=== PATIENT | female | born 1965 | race Asian ===

== ENCOUNTER 2020-07-22 09:28 | Inpatient (IN) | payer OTHER ==
[~2020-07-22] VITALS: Ht 167.6 cm; Wt 71.8 kg
[2020-07-22 10:03] LABS: EOSINOPHILS % (AUTO) 2.5 % (1.0-6.0); HEMATOCRIT 46.2 % (36-46); HEMOGLOBIN 14.9 g/dL (12.0-16.0); LYMPHOCYTES # (AUTO) 2.6 K/uL (1.0-4.8); MEAN CORPUSCULAR HEMOGLOBIN 28.3 pg (26.0-34.0); MEAN CORPUSCULAR HGB CONC 32.3 G/dL (31.0-37.0); MEAN CORPUSCULAR VOLUME 88 fL (80-100); MONOCYTES # (AUTO) 0.6 K/uL (0.1-1.0); MONOCYTES % (AUTO) 7.8 % (2.0-9.0); NEUTROPHILS # (AUTO) 4.6 K/uL (1.8-7.7); NEUTROPHILS % (AUTO) 56.7 % (40.0-70.0); PLATELET COUNT (AUTO) 200 K/uL (150-450); RED BLOOD CELL COUNT(AUTO) 5.27 MIL/uL (4.00-5.20)
[2020-07-22] MEDS: NiCARDipine HCL 25 MG in SODIUM CHLORIDE 0.9% 240 ML IV PRN ×3 (10:09→20:36)
[2020-07-22 10:12] LABS: PROTHROMBIN TIME 10.6 SEC (9.4-11.6)
[2020-07-22 10:15] LABS: COVID AG,FIA SOURCE NASOPHARYNGEAL
[2020-07-22 10:22] LABS: ANION GAP 8 mmol/L (8-16); CALCIUM, TOTAL 8.5 mg/dL (8.8-10.5); CARBON DIOXIDE 30 mmol/L (22-29); CHLORIDE 105 mmol/L (98-107); CREATININE 0.87 mg/dL (0.60-1.30); GLOMERULAR FILTR. RATE CALC > 60 mL/min (>60); GLUCOSE,RANDOM 157 mg/dL (70-110); POTASSIUM 3.8 mmol/L (3.5-5.1); SODIUM SERUM 143 mmol/L (136-145); UREA NITROGEN, BLOOD 12 mg/dL (7-18)
[2020-07-22 10:23] LABS: ALANINE AMINOTRANSFERASE 31 U/L (12-78); ALBUMIN 3.7 g/dL (3.4-5.0); ALKALINE PHOSPHATASE 108 U/L (46-116); ASPARTATE AMINOTRANSFERASE 30 U/L (15-37); BILIRUBIN,TOTAL 0.6 mg/dL (0.1-1.0); TOTAL PROTEIN, SERUM 7.6 g/dL (6.4-8.2)
[2020-07-22] MEDS ORDERED: ONDANSETRON HCL 4 MG/2 ML VIAL IVP PRN ×2 (10:45→12:30)
[2020-07-22] MEDS ORDERED: ACETAMINOPHEN 325 MG TABLET PO PRN (10:45)
[2020-07-22] MEDS ORDERED: BISACODYL 10 MG RECTAL RECTAL SUPPOSITORY PR PRN (12:30)
[2020-07-22] MEDS ORDERED: IPRATROPIUM BROMIDE 0.5 MG/2.5 ML NEB SOLUTION NEB PRN (12:30)
[2020-07-22] MEDS ORDERED: 0.9% SODIUM CHLORIDE 10 ML SYRINGE IVP PRN (12:30)
[2020-07-22] MEDS ORDERED: ALBUTEROL SULFATE 2.5 MG/0.5 ML NEB SOLUTION NEB PRN (12:30)
[2020-07-22] MEDS ORDERED: SODIUM CHLORIDE 0.9% 250 ML IV ONE (12:45)
[2020-07-22] MEDS: CefTRIAXone 1 GM/DEXTROSE 50 ML IV SCH (12:56)
[2020-07-22] MEDS: PANTOPRAZOLE SODIUM 40 MG/VIAL IVP SCH (12:56)
[2020-07-22] MEDS ORDERED: SODIUM CHLORIDE 0.9% 100 ML ONE (13:25)
[2020-07-22] MEDS ORDERED: IOHEXOL 350 MG/ML 100 ML VIAL ONE (13:25)
[2020-07-22] MEDS: DOXYCYCLINE HYCLATE 100 MG in DEXTROSE 5%-WATER 100 ML IV SCH (14:24)
[2020-07-22 16:46] LABS: B-TYPE NATRIURETIC PEPTIDE 150 pg/mL (0-100)
[2020-07-22 17:05] VITALS: BP 159/103
[2020-07-22] MEDS: ACETAMINOPHEN 325 MG TABLET PO PRN ×2 (17:50→21:51)
[2020-07-22 20:00] VITALS: BP 176/89
[2020-07-23] VITALS: BP 150/88
[2020-07-23] MEDS: LORazepam 2 MG/ML VIAL IVP PRN ×3 (00:26→21:30)
[2020-07-23] MEDS ORDERED: SODIUM CHLORIDE 0.9% 250 ML IV ONE (01:35)
[2020-07-23] MEDS: NiCARDipine HCL 25 MG in SODIUM CHLORIDE 0.9% 240 ML IV PRN ×5 (01:56→23:39)
[2020-07-23] MEDS: DOXYCYCLINE HYCLATE 100 MG in DEXTROSE 5%-WATER 100 ML IV SCH ×2 (02:42→14:38)
[2020-07-23 04:00] VITALS: BP 176/110
[2020-07-23] MEDS: ACETAMINOPHEN 325 MG TABLET PO PRN ×3 (04:18→21:09)
[2020-07-23 05:43] LABS: BASOPHILS % (AUTO) 0.4 % (0.0-2.0); EOSINOPHILS % (AUTO) 0.1 % (1.0-6.0); HEMATOCRIT 51.2 % (36-46); HEMOGLOBIN 16.6 g/dL (12.0-16.0); LYMPHOCYTES # (AUTO) 1.8 K/uL (1.0-4.8); MEAN CORPUSCULAR HEMOGLOBIN 28.2 pg (26.0-34.0); MEAN CORPUSCULAR HGB CONC 32.4 G/dL (31.0-37.0); MEAN CORPUSCULAR VOLUME 87 fL (80-100); NEUTROPHILS # (AUTO) 9.2 K/uL (1.8-7.7); NEUTROPHILS % (AUTO) 76.5 % (40.0-70.0); PLATELET COUNT (AUTO) 246 K/uL (150-450); RED CELL DISTRIBUTION WIDTH 14.2 % (11.5-14.5)
[2020-07-23 06:13] LABS: ALANINE AMINOTRANSFERASE 31 U/L (12-78); ALBUMIN 4.1 g/dL (3.4-5.0); ALKALINE PHOSPHATASE 93 U/L (46-116); ANION GAP 11 mmol/L (8-16); ASPARTATE AMINOTRANSFERASE 25 U/L (15-37); BILIRUBIN,TOTAL 1.2 mg/dL (0.1-1.0); CALCIUM, TOTAL 8.9 mg/dL (8.8-10.5); CARBON DIOXIDE 29 mmol/L (22-29); CHLORIDE 101 mmol/L (98-107); CHOL/HDL RATIO 2.2 (3.9-5.7); CHOLESTEROL 157 mg/dL (131-200); CREATININE 0.77 mg/dL (0.60-1.30); GLOMERULAR FILTR. RATE CALC > 60 mL/min (>60); GLUCOSE,RANDOM 136 mg/dL (70-110); HDL CHOLESTEROL 70 mg/dL (40-60); LDL CHOL (CALC.) 74 mg/dL (0-130); POTASSIUM 3.1 mmol/L (3.5-5.1); SODIUM SERUM 141 mmol/L (136-145); THYROID STIMULATING HORMONE 0.68 uIU/mL (0.36-3.74); TOTAL PROTEIN, SERUM 8.5 g/dL (6.4-8.2); TRIGLYCERIDES 63 mg/dL (15-150); UREA NITROGEN, BLOOD 12 mg/dL (7-18)
[2020-07-23 08:00] VITALS: BP 138/89
[2020-07-23] MEDS: MetroNIDAZOLE 500 MG/NACL 100 ML IV SCH ×3 (08:54→23:39)
[2020-07-23] MEDS ORDERED: SODIUM CHLORIDE 0.9% 100 ML ONE (09:20)
[2020-07-23] MEDS ORDERED: IOHEXOL 350 MG/ML 100 ML VIAL ONE (09:20)
[2020-07-23] MEDS: PANTOPRAZOLE SODIUM 40 MG/VIAL IVP SCH (10:50)
[2020-07-23 12:00] VITALS: BP 147/82
[2020-07-23] MEDS: SODIUM CHLORIDE 0.9% 1,000 ML IV SCH (12:39)
[2020-07-23] MEDS: CefTRIAXone 1 GM/DEXTROSE 50 ML IV SCH (12:40)
[2020-07-23] MEDS: POTASSIUM CHL 10 MEQ/WATER 50 ML IV PRN ×3 (12:41→16:32)
[2020-07-23] MEDS ORDERED: DEXTROSE 50%-WATER 25 GM/50 ML SYRINGE IVP PRN (12:45)
[2020-07-23 16:00] VITALS: BP 149/89
[2020-07-23 17:20] LABS: GLUCOSE,POINT OF CARE 134 MG/DL (70-110)
[2020-07-23] MEDS: HEPARIN SODIUM,PORCINE 5,000 UNITS/ML VIAL SQ SCH ×2 (17:42→23:38)
[2020-07-23 18:27] LABS: ALANINE AMINOTRANSFERASE 14 U/L (12-78); ALBUMIN 4.3 g/dL (3.4-5.0); ALKALINE PHOSPHATASE 94 U/L (46-116); ANION GAP 10 mmol/L (8-16); ASPARTATE AMINOTRANSFERASE 29 U/L (15-37); CALCIUM, TOTAL 9.1 mg/dL (8.8-10.5); CARBON DIOXIDE 29 mmol/L (22-29); CHLORIDE 103 mmol/L (98-107); CREATININE 0.91 mg/dL (0.60-1.30); GLOMERULAR FILTR. RATE CALC > 60 mL/min (>60); GLUCOSE,RANDOM 134 mg/dL (70-110); SODIUM SERUM 142 mmol/L (136-145); UREA NITROGEN, BLOOD 13 mg/dL (7-18)
[2020-07-23 18:35] LABS: GLUCOSE,POINT OF CARE 137 MG/DL (70-110)
[2020-07-23 20:00] VITALS: BP 162/92
[2020-07-23] MEDS: INSULIN LISPRO 100 UNITS/ML SQ PRN (23:57)
[2020-07-24] VITALS (8 sets, daily range): BP systolic 145–166; BP diastolic 82–100
[2020-07-24] LABS: GLUCOSE,POINT OF CARE 116 MG/DL (70-110)
[2020-07-24] MEDS: DOXYCYCLINE HYCLATE 100 MG in DEXTROSE 5%-WATER 100 ML IV SCH ×2 (02:12→14:15)
[2020-07-24] MEDS: ACETAMINOPHEN 325 MG TABLET PO PRN ×5 (02:12→20:30)
[2020-07-24] MEDS: SODIUM CHLORIDE 0.9% 1,000 ML IV SCH ×2 (02:12→17:44)
[2020-07-24] MEDS: NiCARDipine HCL 25 MG in SODIUM CHLORIDE 0.9% 240 ML IV PRN ×5 (04:46→21:33)
[2020-07-24 05:08] LABS: GLUCOSE,POINT OF CARE 141 MG/DL (70-110)
[2020-07-24 05:32] LABS: BASOPHILS % (AUTO) 0.3 % (0.0-2.0); EOSINOPHILS % (AUTO) 0.1 % (1.0-6.0); HEMATOCRIT 52.1 % (36-46); HEMOGLOBIN 16.8 g/dL (12.0-16.0); LYMPHOCYTES # (AUTO) 1.5 K/uL (1.0-4.8); LYMPHOCYTES % (AUTO) 14.1 % (22.0-44.0); MEAN CORPUSCULAR HEMOGLOBIN 28.2 pg (26.0-34.0); MEAN CORPUSCULAR HGB CONC 32.3 G/dL (31.0-37.0); MEAN CORPUSCULAR VOLUME 87 fL (80-100); MONOCYTES # (AUTO) 0.7 K/uL (0.1-1.0); MONOCYTES % (AUTO) 6.5 % (2.0-9.0); NEUTROPHILS # (AUTO) 8.3 K/uL (1.8-7.7); PLATELET COUNT (AUTO) 235 K/uL (150-450); RED BLOOD CELL COUNT(AUTO) 5.98 MIL/uL (4.00-5.20)
[2020-07-24 05:48] LABS: ALANINE AMINOTRANSFERASE 28 U/L (12-78); ALBUMIN 3.7 g/dL (3.4-5.0); ALKALINE PHOSPHATASE 77 U/L (46-116); ANION GAP 9 mmol/L (8-16); ASPARTATE AMINOTRANSFERASE 28 U/L (15-37); BILIRUBIN,TOTAL 0.8 mg/dL (0.1-1.0); CALCIUM, TOTAL 8.1 mg/dL (8.8-10.5); CARBON DIOXIDE 28 mmol/L (22-29); CHLORIDE 105 mmol/L (98-107); CREATININE 0.84 mg/dL (0.60-1.30); GLOMERULAR FILTR. RATE CALC > 60 mL/min (>60); GLUCOSE,RANDOM 141 mg/dL (70-110); POTASSIUM 3.4 mmol/L (3.5-5.1); SODIUM SERUM 142 mmol/L (136-145); TOTAL PROTEIN, SERUM 7.9 g/dL (6.4-8.2); UREA NITROGEN, BLOOD 15 mg/dL (7-18)
[2020-07-24 06:07] LABS: GLUCOSE,POINT OF CARE 129 MG/DL (70-110)
[2020-07-24] MEDS: HEPARIN SODIUM,PORCINE 5,000 UNITS/ML VIAL SQ SCH ×3 (08:00→16:00)
[2020-07-24] MEDS: MetroNIDAZOLE 500 MG/NACL 100 ML IV SCH ×2 (08:48→16:31)
[2020-07-24] MEDS: PANTOPRAZOLE SODIUM 40 MG/VIAL IVP SCH (08:48)
[2020-07-24] MEDS: POTASSIUM CHL 10 MEQ/WATER 50 ML IV PRN ×3 (11:34→14:38)
[2020-07-24] MEDS: CefTRIAXone 1 GM/DEXTROSE 50 ML IV SCH (13:24)
[2020-07-24] MEDS: INSULIN LISPRO 100 UNITS/ML SQ PRN (13:59)
[2020-07-24 17:15] LABS: GLUCOSE,POINT OF CARE 146 MG/DL (70-110)
[2020-07-24 20:21] LABS: GLUCOSE,POINT OF CARE 134 MG/DL (70-110)
[2020-07-24 22:39] LABS: GLUCOSE,POINT OF CARE 134 MG/DL (70-110)
[2020-07-25] VITALS: BP 149/96
[2020-07-25] MEDS: MetroNIDAZOLE 500 MG/NACL 100 ML IV SCH ×2 (00:06→07:54)
[2020-07-25] MEDS: NiCARDipine HCL 25 MG in SODIUM CHLORIDE 0.9% 240 ML IV PRN ×3 (00:07→05:39)
[2020-07-25] MEDS: LABETALOL HCL 5 MG/ML 20 ML VIAL IVP PRN ×2 (01:40→08:33)
[2020-07-25] MEDS: DOXYCYCLINE HYCLATE 100 MG in DEXTROSE 5%-WATER 100 ML IV SCH (02:04)
[2020-07-25] MEDS ORDERED: SODIUM CHLORIDE 0.9% 250 ML IV ONE (03:35)
[2020-07-25 04:15] VITALS: BP 144/71
[2020-07-25 05:29] LABS: BASOPHILS % (AUTO) 0.9 % (0.0-2.0); EOSINOPHILS % (AUTO) 0.4 % (1.0-6.0); HEMATOCRIT 49.8 % (36-46); HEMOGLOBIN 15.7 g/dL (12.0-16.0); LYMPHOCYTES # (AUTO) 2.3 K/uL (1.0-4.8); LYMPHOCYTES % (AUTO) 20.9 % (22.0-44.0); MEAN CORPUSCULAR HEMOGLOBIN 27.8 pg (26.0-34.0); MEAN CORPUSCULAR HGB CONC 31.5 G/dL (31.0-37.0); MEAN CORPUSCULAR VOLUME 88 fL (80-100); MONOCYTES % (AUTO) 8.8 % (2.0-9.0); NEUTROPHILS # (AUTO) 7.6 K/uL (1.8-7.7); PLATELET COUNT (AUTO) 221 K/uL (150-450); RED BLOOD CELL COUNT(AUTO) 5.65 MIL/uL (4.00-5.20); RED CELL DISTRIBUTION WIDTH 14.3 % (11.5-14.5)
[2020-07-25 05:30] VITALS: BP 153/90
[2020-07-25] MEDS: ACETAMINOPHEN 325 MG TABLET PO PRN ×2 (05:30→09:29)
[2020-07-25 05:46] LABS: ALANINE AMINOTRANSFERASE 26 U/L (12-78); ALBUMIN 3.5 g/dL (3.4-5.0); ALKALINE PHOSPHATASE 65 U/L (46-116); ANION GAP 8 mmol/L (8-16); ASPARTATE AMINOTRANSFERASE 24 U/L (15-37); BILIRUBIN,TOTAL 0.9 mg/dL (0.1-1.0); CALCIUM, TOTAL 8.1 mg/dL (8.8-10.5); CARBON DIOXIDE 28 mmol/L (22-29); CHLORIDE 108 mmol/L (98-107); CREATININE 0.83 mg/dL (0.60-1.30); GLOMERULAR FILTR. RATE CALC > 60 mL/min (>60); GLUCOSE,RANDOM 125 mg/dL (70-110); POTASSIUM 3.4 mmol/L (3.5-5.1); SODIUM SERUM 144 mmol/L (136-145); TOTAL PROTEIN, SERUM 7.3 g/dL (6.4-8.2); UREA NITROGEN, BLOOD 17 mg/dL (7-18)
[2020-07-25 06:30] VITALS: BP 142/89
[2020-07-25 07:09] LABS: GLUCOSE,POINT OF CARE 125 MG/DL (70-110)
[2020-07-25] MEDS: PANTOPRAZOLE SODIUM 40 MG/VIAL IVP SCH (07:53)
[2020-07-25] MEDS: SODIUM CHLORIDE 0.9% 1,000 ML IV SCH (07:53)
[2020-07-25] MEDS: POTASSIUM CHL 10 MEQ/WATER 50 ML IV PRN ×3 (07:54→10:39)
[2020-07-25] MEDS: HEPARIN SODIUM,PORCINE 5,000 UNITS/ML VIAL SQ SCH ×2 (07:55)
[2020-07-25 08:00] VITALS: BP 147/80
[2020-07-25 08:33] VITALS: BP 155/89
[2020-07-25] MEDS ORDERED: NIFEdipine 30 MG ER TABLET PO SCH (09:45)
[2020-07-25] MEDS: LORazepam 2 MG/ML VIAL IVP PRN (10:04)
== END 2020-07-25 11:20 | disposition short-term general hospital (02) | DRG 64 ==
LOC: EDBD 09:30 → EMS 09:30 → ICU 15:57
PROVIDERS: ADMIT Internal Medicine; ATTEND Internal Medicine
DX: I61.1 Nontraumatic intracerebral hemorrhage in hemisphere, cortical (principal); J96.00 Acute respiratory failure, unspecified whether with hypoxia or hypercapnia; J69.0 Pneumonitis due to inhalation of food and vomit; G81.94 Hemiplegia, unspecified affecting left nondominant side; I50.9 Heart failure, unspecified; E11.9 Type 2 diabetes mellitus without complications; I11.9 Hypertensive heart disease without heart failure; J45.909 Unspecified asthma, uncomplicated; Z20.822 Contact with and (suspected) exposure to COVID-19; Z79.4 Long term (current) use of insulin; Z79.899 Other long term (current) drug therapy
CPT/HCPCS: 70496; 70498; 70551; 71045; 71250; 80053; 80061; 82962; 83036; 83880; 84132; 84145; 84439; 84443; 84484; 85025; 85610; 87040; 87081; 87426; 92507; 93005; 93306; 93970; 94640; 97162; 97167; 97530; 99285; A9575; C9113; G0378; J0696; J1644; J2060; J3480; J3490; J7030; J7050; J7060; 36415-L1; 36415-TC; 70450; 70450-TC; J7613